=== PATIENT | male | born 1990 | race Caucasian/White ===

== ENCOUNTER → 2024-05-29 | Outpatient (CLI) | payer OTHER ==
[~2024-05-29] MED LIST: AMOX500 PO; CEPH500 PO; CYCL10 PO; DIAZ10 PO; FLUT.05NI; HYDACE5 PO; IBUP800 PO; LISI20 PO; LORA1 PO; LORPSEER24 PO; METPRE4DP PO; MORP15ER PO; NAPR500 PO; OXYACE5T PO; PRED20 PO; RXHYDACE PO; TRAM50 PO
[2024-06-01 09:39] LABS: HEPATITIS B SURFACE ANTIGEN Negative (Negative)
[2024-06-01 11:29] LABS: HIV 1,2 COMBO ANTIGEN/ANTIBODY Negative (Negative)
[2024-06-01 12:57] LABS: HEPATITIS C AB CIA INTERP Negative (Negative); HEPATITIS C ANTIBODY CIA INDEX 0.07 IV
[2024-06-02 03:39] LABS: APTIMA MEDIA TYPE Urine; C. TRACHOMATIS BY TMA Negative (Negative); N. GONORRHOEAE BY TMA Negative (Negative); SPECIMEN SOURCE Urine; T. VAGINALIS BY TMA Negative (Negative)
== END | disposition home or self-care (01) ==
LOC: LAB 17:26 → LAB SHORT 17:26
PROVIDERS: Registered Nurse Community Health
DX: Z11.3 Encounter for screening for infections with a predominantly sexual mode of transmission (principal); Z20.2 Contact with and (suspected) exposure to infections with a predominantly sexual mode of transmission
CPT/HCPCS: 86592; 86803; 87340; 87389; 87491; 87591; 87661